=== PATIENT | female | born 1990 | race Caucasian/White ===

== ENCOUNTER 2018-10-08 11:38 | Emergency (ER) | payer OTHER ==
[~2018-10-08] VITALS: Ht 165.1 cm; Wt 62.4 kg
[2018-10-08 11:44] VITALS: Ht 165.1 cm; Wt 62.4 kg
[2018-10-08] MEDS ORDERED: SILV20CR12 TOP (12:15)
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
== END 2018-10-08 12:23 | disposition home or self-care (01) ==
LOC: FTE 11:38
DX: T22.011A Burn of unspecified degree of right forearm, initial encounter (principal); X12.XXXA Contact with other hot fluids, initial encounter; Y92.9 Unspecified place or not applicable
CPT/HCPCS: 99283